=== PATIENT | female | born 1965 | race Caucasian/White ===

== ENCOUNTER 2016-10-17 15:11 | Emergency (ER) | payer OTHER ==
[~2016-10-17] VITALS: Wt 78.0 kg
[~2016-10-17 15:11] MED LIST: PROM5SYR2 PO; SODI75SP NASAL
--- NOTE | 2016-10-17 15:44 | ERD ---
ER Documentation Chief Complaint Date/Time DATE: 10/17/16 Chief Complaint Dysuria HPI The patient is a 51-year-old female who presents to the emergency department with complaint of dysuria. The patient reports that her symptoms initially began 3 days ago, with onset of urinary frequency, urgency, burning upon urination and mild suprapubic abdominal pain. She reports mild white vaginal discharge. The patient describes her pain as pressure-like in nature, constant, and worsening upon urination. She denies any hematuria or flank pain. Denies fevers, sweats, chills, nausea, vomiting. Denies vaginal bleeding. The patient reports a history of similar symptoms in the past, at which time she was diagnosed with a urinary tract infection. Denies chest pain, palpitations, shortness of breath. No other complaints at this time. ROS All systems reviewed and are negative except as per history of present illness. Medications Home Meds Active Scripts Phenazopyridine Hcl* (Pyridium*) 200 Mg Tab, 200 MG PO TID Y for URINARY PAIN for 2 Days, #6 TAB Prov:JOSE TREVINO PA-C 10/17/16 Promethazine HCl/Codeine (Prometh-Codein 6.25-10 mg/5 ml) 5 Ml Syrup, 5 ML PO Q6 for 10 Days Prov:CONSTANZA LAM I. [employer] 02/08/15 Sodium Chloride/Sod Bicarb (Nasa Mist Saline [place]) 75 Ml [place], 2 SPRAYS NASAL BID, #1 BOTTLE Prov:CONSTANZA LAM I. [employer] SHE[employer] 02/08/15 Allergies Allergies: Coded Allergies: No Known Allergy (Unverified , 02/08/15) PMhx/Soc History of Surgery: Yes (hysterrectomy; neck surgery) Anesthesia Reaction: No Hx Neurological Disorder: No Hx Respiratory Disorders: No Hx Cardiac Disorders: No Hx Psychiatric Problems: No Hx Miscellaneous Medical Probl: No Hx Alcohol Use: No Hx Substance Use: No Hx Tobacco Use: No Smoking Status: Never smoker Physical Exam Vitals Vital Signs Date Time Temp Pulse Resp B/P Pulse Ox O2 Delivery O2 Flow Rate FiO2 10/17/16 15:12 98.4 72 18 127/60 99 Physical Exam GENERAL: Well-developed, well-nourished, female, in no acute distress. HEENT: Head is normocephalic, atraumatic. No scleral pallor or icterus. Pupils equal, round and reactive to light. Conjunctiva pink. Moist mucous membranes. NECK: Supple. No masses, no tenderness, no lymphadenopathy. RESPIRATORY: Lungs are clear to auscultation bilaterally. No rales, rhonchi or wheezing. Equal breath sounds. Normal expiratory effort. CARDIOVASCULAR: Regular rate and rhythm. S1 and S2 normal. GASTROINTESTINAL: Abdomen is soft, non-tender, and non-distended. No guarding, no rebound tenderness. Normal bowel sounds. GENITOURINARY: Irritation at the introitus, with mild discomfort upon palpation. Small amount of white, curd-like vaginal discharge noted. No purulent discharge. No masses, lesions, vesicles, ulcerations, bullae. No bleeding. FLANK: No CVA tenderness. BACK: No midline tenderness. EXTREMITIES: No clubbing, cyanosis, or edema. Normal skin perfusion. Moving all extremities. No focal swelling or erythema. NEUROLOGIC: The patient is alert, awake, and oriented x 3. INTEGUMENT: Skin is intact. Warm and dry. No rashes, no petechiae present. PSYCHIATRIC: Cooperative. Appropriate. Results 24 hrs Laboratory Tests Test 10/17/16 15:56 Urine Color STRAW Urine Clarity CLEAR Urine pH 8.0 Urine Specific [place] 1.011 Urine Ketones NEGATIVEmg/dL Urine Nitrite NEGATIVEmg/dL Urine Bilirubin NEGATIVEmg/dL Urine Urobilinogen NEGATIVEmg/dL Urine Leukocyte Esterase NEGATIVELeu/ul Urine Microscopic RBC 3/HPF Urine Microscopic WBC 1/HPF Urine Hemoglobin 1+mg/dL Urine Glucose NEGATIVEmg/dL Urine Total Protein NEGATIVEmg/dl Current Medications Medications (Trade) Dose Ordered Sig/Corrie Route PRN Reason Start Time Stop Time Status Last Admin Dose Admin Fluconazole (Diflucan) 150 mg ONCE ONCE PO 10/17/16 17:00 10/17/16 17:01 DC 10/17/16 16:34 Procedures/MDM This is a 51-year-old female presenting to the Emergency Department with complaint of white vaginal discharge, dysuria, urinary urgency and frequency. On physical examination, she had a small amount of white curd-like vaginal discharge noted with irritation at the introitus, consist with candidiasis. Otherwise, no purulent discharge, no active bleeding. Vital signs are stable. Differential diagnosis includes, but is not limited to, urinary tract infection , PID, TOA, cervicitis, dermatitis, chlamydia, gonorrhea, bacterial vaginosis, candidiasis, herpes, lichen sclerosus, trichomoniasis. Urinalysis with no nitrites, no urine leukocyte esterase, no laboratory evidence of urinary tract infection. Urine culture is sent. She has not had fever or any constitutional symptoms, no flank pain or CVA tenderness, and therefore I doubt pyelonephritis. After rest and administration of Fluconazole, the patient reports no new complaints. Upon my review and interpretation of the patient's presentation and overall ER course, I believe that the patient's symptoms are most consistent with dysuria and vaginal candidiasis. The patient was given a dose of Fluconazole 150 mg PO in the ED. At this time the patient is in stable condition and therefore can be discharged home with strict return precautions for signs of deteriorating or worsening condition. She is instructed to follow up with her primary care provider within 2-3 days for re-evaluation and further management or return to the ER sooner for any worsening symptoms. I shared my medical decision making and plan with the patient and she verbally understands and agrees with the plan for further observation and care as an outpatient. At the time of discharge, all questions were answered. Departure Diagnosis: Primary Impression: Dysuria Additional Impression: Vulvovaginal candidiasis Condition: Stable Patient Instructions: Dysuria, Vaginal Infection: Yeast (Candidiasis) Additional Instructions: Llame al doctor MAANA y stalin wilfred SCOTT PARA DENTRO DE 2-3 MICHAEL.Dgale a la secretaria que nosotros le instruimos hacer esta scott.Avise o llame si olivarez condicin se empeora antes de la scott. Regresa aqui si peor o no mejor. JOSE TREVINO PA-C Oct 17, 2016 15:44
[2016-10-17 16:09] LABS: ADD UMIC YES; UR ASCORBIC ACID NEGATIVE (NEGATIVE); UR BILIRUBIN (Dip) NEGATIVE (NEGATIVE); UR BLOOD (Dip) 1+ mg/dL (NEGATIVE); UR CLARITY CLEAR (CLEAR); UR COLOR STRAW (YELLOW); UR GLUCOSE (Dip) NEGATIVE (NEGATIVE); UR KETONES (Dip) NEGATIVE (NEGATIVE); UR LEUKOCYTE ESTERASE (Dip) NEGATIVE Leu/ul (NEGATIVE); UR NITRITE (Dip) NEGATIVE (NEGATIVE); UR RBC 3 /HPF (0-5); UR SPECIFIC GRAVITY (Dip) 1.011 (1.003-1.030); UR TOTAL PROTEIN (Dip) NEGATIVE (NEGATIVE); UR UROBILINOGEN (Dip) NEGATIVE (NEGATIVE)
[2016-10-17] MEDS ORDERED: PHEN-538 PO (16:34)
[2016-10-17] MEDS ORDERED: FLUCONAZOLE 150 MG TAB PO ONE (17:00)
== END 2016-10-17 17:37 | disposition home or self-care (01) ==
LOC: FTE 15:11
DX: R30.0 Dysuria (principal); B37.3 Candidiasis of vulva and vagina
CPT/HCPCS: 81001; 87086; Z7502; Z7610; 99283

== ENCOUNTER 2016-12-03 01:11 | Emergency (ER) | payer OTHER ==
[~2016-12-03] VITALS: Ht 162.6 cm; Wt 70.0 kg
[~2016-12-03 01:11] MED LIST changes: +PHEN-538 PO
[2016-12-03 01:16] VITALS: Ht 162.6 cm; Wt 70.0 kg
--- NOTE | 2016-12-03 01:40 | ERD ---
ER Documentation Chief Complaint Chief Complaint LUQ abd pain x 1 day HPI The patient is a 51-year-old female, presenting to the ER because of left upper quadrant abdominal pain intermittently since 4 PM today, she had similar symptoms previously, complains of constipation. She denies fever, chills, neck pain, chest pain, vomiting, dysuria, aggravating or relieving factor. She does not smoke or drink Past medical history: None Past medical history: Cervical fusion, hysterectomy ROS All systems reviewed and are negative except as per history of present illness. Medications Home Meds Active Scripts Ibuprofen* (Motrin*) 600 Mg Tab, 600 MG PO Q6, #20 TAB Prov:ROSITA GASTON MD 12/03/16 Sodium Chloride/Sod Bicarb (Nasa Mist Saline [place]) 75 Ml [place], 2 SPRAYS NASAL BID, #1 BOTTLE Prov:CONSTANZA LAM NP 02/08/15 Reported Medications Fluticasone Propionate* (Fluticasone Propionate* Nasal) 50 Mcg/[place] - 16 Gm [place].susp, 1 SPRAY NASAL DAILY, #1 BOTTLE TO EACH NOSTRIL 12/03/16 Discontinued Scripts Phenazopyridine Hcl* (Pyridium*) 200 Mg Tab, 200 MG PO TID Y for URINARY PAIN for 2 Days, #6 TAB Prov:JOSE TREVINO PA-C 10/17/16 Promethazine HCl/Codeine (Prometh-Codein 6.25-10 mg/5 ml) 5 Ml Syrup, 5 ML PO Q6 for 10 Days Prov:CONSTANZA LAM NP 02/08/15 Allergies Allergies: Coded Allergies: No Known Allergy (Unverified , 02/08/15) PMhx/Soc History of Surgery: Yes (hysterrectomy; neck surgery) Anesthesia Reaction: No Hx Neurological Disorder: No Hx Respiratory Disorders: No Hx Cardiac Disorders: No Hx Psychiatric Problems: No Hx Miscellaneous Medical Probl: No Hx Alcohol Use: No Hx Substance Use: No Hx Tobacco Use: No Physical Exam Vitals Vital Signs Date Time Temp Pulse Resp B/P Pulse Ox O2 Delivery O2 Flow Rate FiO2 12/03/16 01:16 98.2 74 20 123/58 98 Physical Exam Const: No acute distress. Head: Atraumatic. Eyes: Normal Conjunctiva. ENT: Normal External Ears, Nose and Mouth. Neck: Full range of motion. No meningismus. Resp: Clear to auscultation bilaterally. Cardio: Regular rate and rhythm. Abd: Soft, non distended, normal bowel sounds, non tender. Skin: No petechiae or rashes. Back: No midline or flank tenderness. Ext: No cyanosis, or edema. Neur: Awake and alert. No focal deficit Psych: Normal Mood and Affect. Result Diagram: 12/03/16 0216 12/03/16 0216 Results 24 hrs Laboratory Tests Test 12/03/16 01:50 12/03/16 02:16 Bedside Urine pH (LAB) 6.0 Bedside Urine Protein (LAB) Negative Bedside Urine Glucose (UA) Negative Bedside Urine Ketones (LAB) Negative Bedside Urine Blood 1+ Bedside Urine Nitrite (LAB) Negative Bedside Urine Leukocyte Esterase (L Trace White Blood Count 6.710^3/ul Red Blood Count 4.4510^6/ul Hemoglobin 13.2g/dl Hematocrit 40.7% Mean Corpuscular Volume 91.5fl Mean Corpuscular Hemoglobin 29.7pg Mean Corpuscular Hemoglobin Concent 32.4g/dl Red Cell Distribution Width 12.8% Platelet Count 30610^3/UL Mean Platelet Volume 9.9fl Neutrophils % 50.5% Lymphocytes % 38.5% Monocytes % 6.7% Eosinophils % 3.6% Basophils % 0.4% Nucleated Red Blood Cells % 0.0/100WBC Neutrophils # 3.410^3/ul Lymphocytes # 2.610^3/ul Monocytes # 0.510^3/ul Eosinophils # 0.210^3/ul Basophils # 0.010^3/ul Nucleated Red Blood Cells # 0.010^3/ul Sodium Level 146mmol/L Potassium Level 3.7mmol/L Chloride Level 106mmol/L Carbon Dioxide Level 27mmol/L Anion Gap 17 Blood Urea Nitrogen 15mg/dl Creatinine 0.86mg/dl Glucose Level 104mg/dl Calcium Level 9.4mg/dl Total Bilirubin 0.2mg/dl Direct Bilirubin 0.00mg/dl Indirect Bilirubin 0.2mg/dl Aspartate Amino Transf (AST/SGOT) 27IU/L Alanine Aminotransferase (ALT/SGPT) 39IU/L Alkaline Phosphatase 86IU/L Total Protein 7.4g/dl Albumin 4.6g/dl Globulin 2.80g/dl Albumin/Globulin Ratio 1.64 Lipase 105U/L Current Medications Medications (Trade) Dose Ordered Sig/Corrie Route PRN Reason Start Time Stop Time Status Last Admin Dose Admin Ketorolac Tromethamine (Toradol) 30 mg ONCE STAT IV 12/03/16 01:58 12/03/16 01:59 DC 12/03/16 02:34 Procedures/MDM MEDICAL MAKING DECISION: The patient is a 51-year-old female, presenting with acute abdominal pain of unclear etiology, acute hematuria. She was treated with Toradol 30 mg IV for pain with good response. The differential diagnoses considered include but are not limited to cholelithiasis, cholecystitis, cystitis, pancreatitis, hepatitis, gastritis, peptic ulcer disease, gastric ulcer, appendicitis, diverticulitis, cholangitis, choledocholithiasis, partial small bowel obstruction. Departure Diagnosis: Primary Impression: Abdominal pain Additional Impression: Hematuria Condition: Good Comments She was discharged with Motrin I discussed the findings with the patient. I advised the patient to follow-up with the primary physician in about 1-2 days, sooner if needed and return if any concern. Disclaimer: Inadvertent spelling and grammatical errors are likely due to EHR/ dictation software use and do not reflect on the overall quality of patient care. Also, please note that the electronic time recorded on this note does not necessarily reflect the actual time of the patient encounter. ROSITA GASTON MD Dec 03, 2016 01:40
[2016-12-03 01:52] LABS: URINE BLOOD (Dip) POC 1+ (NEGATIVE)
[2016-12-03] MEDS ORDERED: KETOROLAC 30 MG INJ IV STA (01:58)
--- NOTE | 2016-12-03 02:16 | RADRPT ---
PROCEDURE: CHEST - 1 VIEW CLINICAL INDICATION: 51-year-old female with chest/abdominal pain. TECHNIQUE: A single frontal AP portable view of the chest was performed. The images were reviewed on a PACS workstation. COMPARISON: Chest x-ray February 08, 2015. FINDINGS: The cardiomediastinal silhouette has a normal appearance. There is no evidence for an infiltrate. There is no evidence for congestive heart failure. There is no evidence for pneumothorax. There is a plate and screws identified within the lower cervical spine from prior fusion. IMPRESSION: 1. No evidence for active cardiopulmonary disease. 2. Prior cervical fusion. .Mark Urbina MD, MD Date Time Electronically viewed and signed by .Mark Urbina MD, on 12/03/2016 02:16 .Rajinder/
[2016-12-03 02:36] LABS: BASOPHILS % 0.4 % (0.0-2.0); EOSINOPHILS # 0.2 10^3/ul (0.0-0.5); EOSINOPHILS % 3.6 % (0.0-7.0); HEMATOCRIT 40.7 % (37.0-47.0); HEMOGLOBIN 13.2 g/dl (12.0-16.0); LYMPHOCYTES # 2.6 10^3/ul (0.8-2.9); LYMPHOCYTES % 38.5 % (15.0-51.0); MEAN CORPUSCULAR HEMOGLOBIN 29.7 pg (29.0-33.0); MEAN CORPUSCULAR HGB CONC 32.4 g/dl (32.0-37.0); MEAN CORPUSCULAR VOLUME 91.5 fl (82.0-101.0); MEAN PLATELET VOLUME 9.9 fl (7.4-10.4); MONOCYTE # 0.5 10^3/ul (0.3-0.9); MONOCYTES % 6.7 % (0.0-11.0); NEUTROPHIL # 3.4 10^3/ul (1.6-7.5); NEUTROPHILS % 50.5 % (39.0-77.0); PLATELET COUNT 253 10^3/UL (140-415); RED BLOOD COUNT 4.45 10^6/ul (4.20-5.40); RED CELL DISTRIBUTION WIDTH 12.8 % (11.5-14.5); WHITE BLOOD COUNT 6.7 10^3/ul (4.8-10.8)
[2016-12-03 03:05] LABS: ALBUMIN 4.6 g/dl (3.3-4.9); ALBUMIN/GLOBULIN RATIO 1.64; BILIRUBIN,INDIRECT 0.2 mg/dl (0-1.1); BILIRUBIN,TOTAL 0.2 mg/dl (0.2-1.3); CALCIUM 9.4 mg/dl (8.4-10.2); CREATININE 0.86 mg/dl (0.44-1.00); POTASSIUM 3.7 mmol/L (3.5-5.1); TOTAL PROTEIN 7.4 g/dl (6.1-8.1)
[2016-12-03] MEDS ORDERED: FLUT16SP17 NASAL (03:25)
[2016-12-03] MEDS ORDERED: IBUP-1542 PO (04:14)
[2016-12-03 04:37] VITALS: BP 118/90; PULSE 84; RESP 18
== END 2016-12-03 05:03 | disposition home or self-care (01) ==
LOC: E/R 01:11
DX: R10.12 Left upper quadrant pain (principal); R31.9 Hematuria, unspecified
CPT/HCPCS: 36415; 71010; 80053; 81003; 83690; 85025; 96374; J1885; Z7502

== ENCOUNTER → 2016-12-29 | Emergency (ER) | payer OTHER ==
[~2016-12-29] VITALS: Wt 68.8 kg
[~2016-12-29] MED LIST changes: +ACETAMINOPHEN 325 MG TAB PO ONE; +FLUT16SP17 NASAL; +IBUP-1542 PO; +NITR-58 PO; -PROM5SYR2 PO
--- NOTE | 2016-12-30 00:42 | ERD ---
ER Documentation Chief Complaint Chief Complaint painful/burning urination/pelvic pain x 1 day (TINAMYKE) HPI dysuria x 2 day , symptoms started 2 days ago worst today, denies hematuria (TINAMYKE) ROS All systems reviewed and are negative except as per history of present illness. (MYKE WILDER) Medications Home Meds Active Scripts Phenazopyridine Hcl* (Pyridium*) 200 Mg Tab, 200 MG PO TID Y for URINARY PAIN, # 6 TAB Prov:TINA,MYKE 12/30/16 Nitrofurantoin Monohyd Macrocr* (Macrobid*) 100 Mg Capsr, 100 MG PO BID for 7 Days, #14 CAP Prov:TINA,MYKE 12/30/16 Ibuprofen* (Motrin*) 600 Mg Tab, 600 MG PO Q6, #20 TAB Prov:ROSITA GASTON MD 12/03/16 Sodium Chloride/Sod Bicarb (Nasa Mist Saline [place]) 75 Ml [place], 2 SPRAYS NASAL BID, #1 BOTTLE Prov:CONSTANZA LAM NP 02/08/15 Reported Medications Fluticasone Propionate* (Fluticasone Propionate* Nasal) 50 Mcg/[place] - 16 Gm [place].susp, 1 SPRAY NASAL DAILY, #1 BOTTLE TO EACH NOSTRIL 12/03/16 Allergies Allergies: Coded Allergies: No Known Allergy (Unverified , 12/29/16) PMhx/Soc Medical and Surgical Hx: pt denies Medical Hx History of Surgery: Yes (hysterrectomy; neck surgery) Anesthesia Reaction: No Hx Neurological Disorder: No Hx Respiratory Disorders: No Hx Cardiac Disorders: No Hx Psychiatric Problems: No Hx Miscellaneous Medical Probl: No Hx Alcohol Use: No Hx Substance Use: No Hx Tobacco Use: No Smoking Status: Never smoker (MYKE WILDER) Physical Exam Vitals Vital Signs Date Time Temp Pulse Resp B/P Pulse Ox O2 Delivery O2 Flow Rate FiO2 12/29/16 22:16 98.4 64 20 108/59 97 (EDILMA HERNANDEZ MD) Vitals Stable, triage notes reviewed (CEZAR WILDERODY) Physical Exam Const: Well-nourished well-appearing well-hydrated female in no acute distress Head: Eyes: ENT: Neck: Resp: Cardio: Abd: Soft, non tender, non distended. Negative CVA tenderness Skin: Back: Ext: Neur: Awake and alert Psych: Normal Mood and Affect (TINA,MYKE) Results 24 hrs Laboratory Tests Test 12/30/16 00:40 Urine Color YELLOW Urine Clarity CLEAR Urine pH 5.0 Urine Specific [place] 1.031 Urine Ketones TRACEmg/dL Urine Nitrite NEGATIVEmg/dL Urine Bilirubin NEGATIVEmg/dL Urine Urobilinogen 1+mg/dL Urine Leukocyte Esterase TRACELeu/ul Urine Microscopic RBC 0/HPF Urine Microscopic WBC 3/HPF Urine Squamous Epithelial Cells FEW/HPF Urine Mucus MANY/HPF Urine Hemoglobin NEGATIVEmg/dL Urine Glucose NEGATIVEmg/dL Urine Total Protein NEGATIVEmg/dl Current Medications Medications (Trade) Dose Ordered Sig/Corrie Route PRN Reason Start Time Stop Time Status Last Admin Dose Admin Acetaminophen (Tylenol Tab) 650 mg ONCE ONCE PO 12/30/16 01:00 12/30/16 01:01 DC 12/30/16 00:55 (EDILMA HERNANDEZ MD) Results 24 hrs Laboratory Tests Test 12/30/16 00:40 Urine Color YELLOW Urine Clarity CLEAR Urine pH 5.0 Urine Specific [place] 1.031 Urine Ketones TRACEmg/dL Urine Nitrite NEGATIVEmg/dL Urine Bilirubin NEGATIVEmg/dL Urine Urobilinogen 1+mg/dL Urine Leukocyte Esterase TRACELeu/ul Urine Microscopic RBC 0/HPF Urine Microscopic WBC 3/HPF Urine Squamous Epithelial Cells FEW/HPF Urine Mucus MANY/HPF Urine Hemoglobin NEGATIVEmg/dL Urine Glucose NEGATIVEmg/dL Urine Total Protein NEGATIVEmg/dl Current Medications Medications (Trade) Dose Ordered Sig/Corrie Route PRN Reason Start Time Stop Time Status Last Admin Dose Admin Acetaminophen (Tylenol Tab) 650 mg ONCE ONCE PO 12/30/16 01:00 12/30/16 01:01 DC 12/30/16 00:55 Interpretation text Urinalysis positive for trace leukocytosis, findings represent possible early urinary tract infection (TINA,MYKE) Procedures/MDM This 51-year-old female presents to emergency department for evaluation of dysuria, back pain, patient denies hematuria, nausea, or vomiting. Emergency room course includes urinalysis positive for trace leukocytosis plan to treat as early urinary tract infection with Macrobid 100 mg 1 tab p.o. twice daily 7 days, Pyridium 200 mg 1 tab p.o. 3 times daily 2 days. Increase fluids, increase rest, follow-up with primary physician if indicated return to emergency department in 48 hours if symptoms fail to improve as anticipated. Patient is stable with no new complaints during ER course, clinically there is no current evidence to suggest sepsis, acute abdomen, acute coronary syndromes , pulmonary embolism or any other emergent condition appearing to require further evaluation or hospitalization. I feel the patient is stable for discharge at this time. I have discussed results, examination findings, the treatment plan with the patient and family present prior to discharge. Indications for emergent reevaluation, side effects of medication were also discussed. All questions were answered. Patient verbalizes understanding and agrees with plan of care. (MYKE WILDER) Patient was seen by the mid-level provider only. I was available for consult, but was not consulted to see this patient. (EDILMA HERNANDEZ MD) Departure Diagnosis: Primary Impression: UTI (urinary tract infection) Urinary tract infection type: acute cystitis Hematuria presence: without hematuria Qualified Code: N30.00 - Acute cystitis without hematuria Condition: Good Patient Instructions: Understanding Urinary Tract Infections (UTIs) Additional Instructions: Thank you for for coming to the [facility] for your care today. Please ask your nurse or provider if you have questions about your care today and do not leave until all your questions have been answered. Please use any medications given as directed and follow-up with your doctor (or the doctor you were referred to) in the next 2-3 days. If you do not have a primary care doctor you may follow up at the [facility] (listed below). You may also use motrin and tylenol as needed for fever and/or pain unless instructed otherwise by your provider or nurse. Indications for more urgent follow-up have been discussed, but you may return to the Emergency Department at ANY time for any worrisome or worsening symptoms. If you have abdominal pain, please know that no test or exam you received is perfect and you should follow up within 8 hours for continued pain. If you had any imaging studies today, such as an X-Ray or CT Scan, these studies will be reviewed later by a radiologist. You will be called if there are important findings that were not identified today, so make sure the contact information you provided at registration is correct. If you received any narcotic pain control medicine today, such as Vicodin, Morphine or Dilaudid, your coordination and judgment may be affected for a number of hours. Please do not drive or operate heavy machinery, and you may want someone to assist you at home. If you were given a prescription for narcotic medication, be aware that it is very addictive- use sparingly and only if necessary. MYKE WILDER Dec 30, 2016 00:42 EDILMA HERNANDEZ MD Dec 30, 2016 06:06
[2016-12-30 01:23] LABS: ADD UMIC YES; UR ASCORBIC ACID 40 mg/dL (NEGATIVE); UR BILIRUBIN (Dip) NEGATIVE (NEGATIVE); UR BLOOD (Dip) NEGATIVE (NEGATIVE); UR CLARITY CLEAR (CLEAR); UR COLOR YELLOW (YELLOW); UR GLUCOSE (Dip) NEGATIVE (NEGATIVE); UR KETONES (Dip) TRACE mg/dL (NEGATIVE); UR LEUKOCYTE ESTERASE (Dip) TRACE Leu/ul (NEGATIVE); UR MUCUS MANY /HPF (NONE SEEN); UR NITRITE (Dip) NEGATIVE (NEGATIVE); UR RBC 0 /HPF (0-5); UR SPECIFIC GRAVITY (Dip) 1.031 (1.003-1.030); UR SQUAMOUS EPITHELIAL CELL FEW /HPF (FEW); UR TOTAL PROTEIN (Dip) NEGATIVE (NEGATIVE); UR UROBILINOGEN (Dip) 1+ mg/dL (NEGATIVE)
== END | disposition home or self-care (01) ==
LOC: FTE 22:12
DX: N30.00 Acute cystitis without hematuria (principal)
CPT/HCPCS: 81001; 99283

== ENCOUNTER 2017-09-26 21:22 | Emergency (ER) | END 2017-09-27 01:30 | disposition home or self-care (01) ==

== ENCOUNTER 2018-05-03 21:12 | Emergency (ER) | payer OTHER ==
[~2018-05-03] VITALS: Ht 157.5 cm; Wt 72.3 kg
[~2018-05-03 21:12] MED LIST changes: -ACETAMINOPHEN 325 MG TAB PO ONE; +CEPH-443 PO
[2018-05-03 21:28] VITALS: Ht 157.5 cm; Wt 72.3 kg
--- NOTE | 2018-05-04 01:52 | ERD ---
ER Documentation Chief Complaint Chief Complaint frequent/burning urination x 2 days HPI This is a 53-year-old female with a past medical history of recurrent UTIs who is presenting for 2 days of burning dysuria and urinary frequency. She does not endorse hematuria or urgency. She also endorses waxing and waning mild suprapubic discomfort. She does not endorse any other abdominal pain. She does not endorse any changes to bowel movements. She has not had any constipation or diarrhea. She has not had any black or bloody or tarry stools. She has not had any nausea or vomiting. She has not had any fever or chills. She has not had any flank pain. She reports that these symptoms are similar to her previous urinary tract infections. The patient has had no headache or vision changes. The patient does not endorse neck or back pain. The patient denies lightheadedness or dizziness. The patient has had no chest pain or trouble breathing. The patient has had no focal deficits. The patient has had no weakness or numbness or tingling to the face or extremities. ROS All systems reviewed and are negative except as per history of present illness. Medications Home Meds Active Scripts Phenazopyridine Hcl* (Pyridium*) 200 Mg Tab, 200 MG PO TID PRN for URINARY PAIN, #6 TAB Prov:KRISTAN ORTIZ NP 09/27/17 Cephalexin* (Keflex*) 500 Mg Capsule, 500 MG PO QID for 10 Days, CAP Prov:KRISTAN ORTIZ NP 09/27/17 Phenazopyridine Hcl* (Pyridium*) 200 Mg Tab, 200 MG PO TID PRN for URINARY PAIN, #6 TAB Prov:TINA,MYKE 12/30/16 Nitrofurantoin Monohyd Macrocr* (Macrobid*) 100 Mg Capsr, 100 MG PO BID for 7 Days, #14 CAP Prov:TINA,MYKE 12/30/16 Ibuprofen* (Motrin*) 600 Mg Tab, 600 MG PO Q6, #20 TAB Prov:ROSITA GASTON MD 12/03/16 Sodium Chloride/Sod Bicarb (Nasa Mist Saline [place]) 75 Ml [place], 2 SPRAYS NASAL BID, #1 BOTTLE Prov:CONSTANZA LAM NP 02/08/15 Reported Medications Fluticasone Propionate* (Fluticasone Propionate* Nasal) 50 Mcg/[place] - 16 Gm [place].susp, 1 SPRAY NASAL DAILY, #1 BOTTLE TO EACH NOSTRIL 12/03/16 Allergies Allergies: Coded Allergies: No Known Allergy (Unverified , 12/29/16) PMhx/Soc History of Surgery: Yes (hysterrectomy; neck surgery) Anesthesia Reaction: No Hx Neurological Disorder: No Hx Respiratory Disorders: No Hx Cardiac Disorders: No Hx Psychiatric Problems: No Hx Miscellaneous Medical Probl: Yes (Recurrent UTIs) Hx Alcohol Use: No Hx Substance Use: No Hx Tobacco Use: No FmHx Family History: No diabetes Physical Exam Vitals Vital Signs Date Temp Pulse Resp B/P (MAP) Pulse Ox O2 O2 Flow FiO2 Time Delivery Rate 05/03/18 98.4 60 18 132/60 97 21:28 (84) Physical Exam Const: No acute distress Head: Atraumatic Eyes: Normal Conjunctiva ENT: Normal External Ears, Nose and Mouth. Neck: Full range of motion. No meningismus. Resp: Clear to auscultation bilaterally Cardio: Regular rate and rhythm, no murmurs Abd: Soft, non distended. Suprapubic tenderness, mild. Normal bowel sounds Skin: No petechiae or rashes Back: No midline or flank tenderness Ext: No cyanosis, or edema Neur: Awake and alert Psych: Normal Mood and Affect Results 24 hrs Laboratory Tests Test 05/04/18 01:57 Bedside Urine pH (LAB) 6.0 Bedside Urine Protein (LAB) Negative Bedside Urine Glucose (UA) Negative Bedside Urine Ketones (LAB) Negative Bedside Urine Blood 2+ Bedside Urine Nitrite (LAB) Negative Bedside Urine Leukocyte Esterase (L Trace Procedures/MDM MDM The patient's presentation warrants further investigation. Previous medical records, if available, were reviewed. LABS The patient's laboratory testing was obtained and reviewed. No emergent tr eatment was required unless described below. Urine: E/o acute infection and hematuria TREATMENT/DISPOSITION The patient presents with symptoms consistent with a urinary tract infection. I have low suspicion for nephrolithiasis or renal colic. I have low suspicion for pyelonephritis. The patient's previous urine culture was sensitive to ciprofloxacin. The patient is presented to the emergency department multiple times for similar symptoms. I discussed with the patient the possibility of following up with a urologist as well. She will follow-up with her primary doctor to help coordinate this care. The patient does not have any evidence of peritonitis. The patient does not have clinical symptoms concerning for mesenteric ischemia or ischemic colitis. The patient does not have right upper quadrant tenderness, and I have low suspicion for gallstones, cholecystitis or biliary colic. The patient does not have any epigastric pain. I have low suspicion for gastritis, PUD or GERD. The patient does not have left upper quadrant tenderness. I have low suspicion for pancreatitis. The patient does not have any right lower quadrant tenderness, or periumbilical tenderness. I have low suspicion for appendicitis. The patient does not have any left lower quadrant tenderness, and I have low suspicion for diverticulosis or diverticulitis. The patient does not have any palpable pulsatile mass or severe abdominal pain radiating to the back. I have low suspicion for aortic aneurysm, dissection or rupture. The patient is not septic. I do not feel the patient requires a full septic workup. DISCHARGE Upon reevaluation of the patient, symptoms have improved. No emergent diagnoses were identified. At this time, I feel that the patient stable for discharge. The patient was instructed to follow-up with a primary care physician in 1-3 days. The patient will be given strict precautions with which to return to the emergency department. Prescriptions: Ciprofloxacin The patient's blood pressure was elevated at greater than 120/80 while in the emergency department. The patient was otherwise stable with no evidence of hypertensive urgency or emergency. The patient does not require admission for blood pressure control. I have discussed with the patient the risks of hypertension. I have instructed the patient to return to the ER for any new or worsening symptoms including chest pain, shortness of breath, headache, blurred vision, confusion, nausea, vomiting or LOC. I have advised the patient to follow up with the primary care physician for outpatient monitoring and treatment for hypertension in 1-3 days. Disclaimer: Inadvertent spelling and grammatical errors are likely due to EHR/dictation software use and do not reflect on the overall quality of patient care. Note that the electronic time recorded on this note does not necessarily reflect the actual time of the patient encounter. Departure Diagnosis: Primary Impression: Urinary tract infection Urinary tract infection type: acute cystitis Hematuria presence: with hematuria Qualified Codes: N30.01 - Acute cystitis with hematuria Additional Impressions: Dysuria Suprapubic pain Condition: Stable Patient Instructions: Understanding Urinary Tract Infections (UTIs) Additional Instructions: Thank you for for coming to [facility] for your care today. Please ask your nurse or provider if you have questions about your care today and do not leave until all your questions have been answered. Please use any medications given as directed and follow-up with your doctor (or the doctor you were referred to) in the next 1-3 days. If you do not have a primary care doctor you may follow up at [place] [facility] [place] [facility] (listed below). You may also use motrin and tylenol as needed for fever and/or pain unless instructed otherwise by your provider or nurse. Indications for more urgent follow-up have been discussed, but you may return to the Emergency Department at ANY time for any worrisome or worsening symptoms. If you have abdominal pain, please know that no test or exam you received is perfect and you should follow up within 8 hours for continued pain. If you had any imaging studies today, such as an X-Ray or CT Scan, these studies will be reviewed later by a radiologist. You will be called if there are important findings that were not identified today, so make sure the contact information you provided at registration is correct. If you received any narcotic pain control medicine today, such as Vicodin, Morphine or Dilaudid, your coordination and judgment may be affected for a number of hours. Please do not drive or operate heavy machinery, and you may want someone to assist you at home. If you were given a prescription for narc otic medication, be aware that it is very addictive- use sparingly and only if necessary. PLEASE SEEK FURTHER EVALUATION AND MANAGEMENT AT YOUR DOCTORS OFFICE WITHIN THE NEXT 1-3 DAYS. IT IS YOUR RESPONSIBILITY TO MAKE AN APPOINTMENT FOR FOLOW-UP CARE. IF YOU HAVE A PRIMARY DOCTOR, PLEASE CALL THEIR OFFICE TO SCHEDULE AN APPOINTMENT FOR FOLLOW UP. IF YOU DO NOT HAVE A PRIMARY DOCTOR YOU CAN CALL OUR PHYSICIAN REFERRAL HOTLINE AT IF YOU CAN NOT AFFORD TO SEE A PHYSICIAN YOU CAN CHOSE FROM THE FOLLOWING [facility] CLINICS: [facility] [address] [facility] [address] [facility] [address] [facility] [address] [facility] [address] [facility]. [facility]. [address] JOSE JENKINS MD May 04, 2018 01:52
[2018-05-04] MEDS ORDERED: CIPR500T4 PO (02:28)
[2018-05-04 02:35] VITALS: BP 132/65; PULSE 60; RESP 16
== END 2018-05-04 02:36 | disposition home or self-care (01) ==
LOC: E/R 21:12
DX: N30.01 Acute cystitis with hematuria (principal)
CPT/HCPCS: 81003; Z7502; 99283

== ENCOUNTER 2018-09-27 04:21 | Emergency (ER) | payer OTHER ==
[~2018-09-27] VITALS: Ht 157.5 cm; Wt 71.3 kg
[~2018-09-27 04:21] MED LIST changes: +ATOR10TA65 PO; +CIPR500T4 PO; +DOCU-230 PO; +FAMO-96 PO; +HYDR100E5 PR; +IBUP-1544 PO; +LANS30CA47 PO; +MAG355OR14 PO; +METR500T PO; +ONDA4TAB13 PO; +PANT40TA3 PO; +PHEN95TA29 PO; +PREMVAG VAG; +RANI-535 PO; +RANI150C11 PO; +SUCR1TAB56 PO; +TRAM50TA2 PO; +[UNRECOGNIZED DRUG - CODE]
[2018-09-27 04:31] VITALS: BP 124/60; PULSE 60; RESP 17; Ht 157.5 cm; Wt 71.3 kg
[2018-09-27] MEDS ORDERED: PHENAZOPYRIDINE 100 MG TAB PO ONE (06:30)
== END 2018-09-27 06:38 | disposition home or self-care (01) ==
LOC: FTE 04:21
DX: N39.0 Urinary tract infection, site not specified (principal)
CPT/HCPCS: 81001; 87086; Z7610; 99283

== ENCOUNTER 2018-09-27 11:47 | Emergency (ER) | payer OTHER ==
[~2018-09-27] VITALS: Ht 157.5 cm; Wt 71.0 kg
[~2018-09-27 11:47] MED LIST changes: -ATOR10TA65 PO; -DOCU-230 PO; -FAMO-96 PO; -HYDR100E5 PR; -LANS30CA47 PO; -MAG355OR14 PO; -METR500T PO; -ONDA4TAB13 PO; -PREMVAG VAG; -RANI-535 PO; +RANI150T35 PO
[2018-09-27 11:53] VITALS: Ht 157.5 cm; Wt 71.0 kg
[2018-09-27] MEDS ORDERED: KETOROLAC 15 MG INJ IV STA (12:30)
[2018-09-27] MEDS ORDERED: FAMOTIDINE 20 MG INJ IV ONE (12:30)
[2018-09-27] MEDS ORDERED: LIDOCAINE/MYLANTA 40 ML BTL PO ONE (12:30)
[2018-09-27] MEDS ORDERED: ONDANSETRON 4 MG INJ IV STA (13:55)
[2018-09-27] MEDS ORDERED: morphine 2 MG INJ IV STA (13:55)
[2018-09-27 15:25] VITALS: BP 131/68; PULSE 63; RESP 16
== END 2018-09-27 13:56 | disposition home or self-care (01) ==
LOC: E/R 11:47
DX: N39.0 Urinary tract infection, site not specified (principal)
CPT/HCPCS: 36415; 76705; 80053; 81003; 83690; 85025; 96374; 96375; J1885; J2270; J2405; Z7502; Z7610

== ENCOUNTER 2018-09-27 21:21 | Emergency (ER) | payer OTHER ==
[~2018-09-27] VITALS: Ht 157.5 cm; Wt 71.0 kg
[2018-09-27 21:28] VITALS: Ht 157.5 cm; Wt 71.0 kg
[2018-09-27] MEDS ORDERED: SOD CHLORIDE 0.9% 500 ML IV STA (22:20)
[2018-09-27] MEDS ORDERED: LIDOCAINE/MYLANTA 40 ML BTL PO STA (22:20)
[2018-09-27] MEDS ORDERED: morphine 4 MG/ML VIAL IV STA (22:20)
[2018-09-27] MEDS ORDERED: ONDANSETRON 4 MG INJ IV STA (22:20)
[2018-09-27] MEDS ORDERED: FAMOTIDINE 20 MG INJ IV STA (22:20)
[2018-09-28 02:10] VITALS: BP 103/51; PULSE 68; RESP 16
== END 2018-09-28 02:10 | disposition home or self-care (01) ==
LOC: E/R 21:21
DX: R10.13 Epigastric pain (principal); R11.0 Nausea
CPT/HCPCS: 36415; 80053; 83690; 85025; 93005; 96374; 96375; J2270; J2405; J7040; Z7502; Z7610